=== PATIENT | female | born 1995 | race African-American/Black ===

== ENCOUNTER 2016-05-27 11:39 | Emergency (ER) | payer OTHER, MEDICAID ==
[~2016-05-27] VITALS: Ht 172.7 cm; Wt 81.5 kg
[~2016-05-27 11:39] MED LIST: DOCU250C91 PO; FERR-89 PO; IBUP-2070 PO; PREN1TAB80 PO
[2016-05-27] MEDS ORDERED: LIDOCAINE HCL BUFFERED 1% 20 ML VIAL INJ ONE (12:45)
[2016-05-27 13:37] VITALS: BP 134/86
== END 2016-05-27 14:13 | disposition home or self-care (01) ==
LOC: EMS 11:40
DX: L03.011 Cellulitis of right finger (principal)
CPT/HCPCS: 10060; 99283; J3490

== ENCOUNTER 2016-12-14 23:36 | Emergency (ER) | payer MEDICAID, OTHER ==
[~2016-12-14] VITALS: Ht 172.7 cm; Wt 86.4 kg
[2016-12-15 03:30] VITALS: BP 132/77
[2016-12-15] MEDS ORDERED: BACITRACIN 0.9 GM PACKET OINTMENT TP ONE (03:30)
[2016-12-15] MEDS ORDERED: PERTUSS(ACELL),DIPH,TET VAC/PF 0.5 ML VIAL IM ONE (03:30)
== END 2016-12-15 03:55 | disposition home or self-care (01) ==
LOC: EMS 23:37
DX: S91.311A Laceration without foreign body, right foot, initial encounter (principal); W25.XXXA Contact with sharp glass, initial encounter; Y93.89 Activity, other specified; Y92.89 Other specified places as the place of occurrence of the external cause; Y99.8 Other external cause status
CPT/HCPCS: 90471; 90715; 99284

== ENCOUNTER 2017-03-13 16:48 | Emergency (ER) | payer MEDICAID, OTHER ==
[~2017-03-13] VITALS: Ht 172.7 cm; Wt 84.5 kg
[2017-03-13 19:08] VITALS: BP 120/78
== END 2017-03-13 20:15 | disposition home or self-care (01) ==
LOC: EMS 16:49
DX: J02.8 Acute pharyngitis due to other specified organisms (principal); B97.89 Other viral agents as the cause of diseases classified elsewhere; J06.9 Acute upper respiratory infection, unspecified
CPT/HCPCS: 87430; 99283

== ENCOUNTER 2018-05-04 18:07 | Emergency (ER) | payer BC, MEDICAID ==
[~2018-05-04] VITALS: Ht 172.7 cm; Wt 81.8 kg
[2018-05-04 20:58] LABS: INFLUENZA TYPE A POSITIVE FOR TYPE A (NEGATIVE); INFLUENZA TYPE B NEGATIVE FOR TYPE B (NEGATIVE)
[2018-05-04 21:16] VITALS: BP 122/68
== END 2018-05-04 21:29 | disposition home or self-care (01) ==
LOC: EMS 18:08
DX: J11.1 Influenza due to unidentified influenza virus with other respiratory manifestations (principal); R03.0 Elevated blood-pressure reading, without diagnosis of hypertension
CPT/HCPCS: 87804

== ENCOUNTER 2018-07-27 13:21 | Emergency (ER) | payer BC, MEDICAID ==
[~2018-07-27] VITALS: Ht 172.7 cm; Wt 70.0 kg
[2018-07-27 14:02] LABS: BASOPHILS % (AUTO) 1.2 % (0.0-2.0); EOSINOPHILS % (AUTO) 1.1 % (1.0-6.0); HEMATOCRIT 38.8 % (36-46); LYMPHOCYTES # (AUTO) 1.8 K/uL (1.0-4.8); LYMPHOCYTES % (AUTO) 24.5 % (22.0-44.0); MEAN CORPUSCULAR HEMOGLOBIN 28.3 pg (26.0-34.0); MEAN CORPUSCULAR HGB CONC 33.6 G/dL (31.0-37.0); MEAN CORPUSCULAR VOLUME 84 fL (80-100); MONOCYTES # (AUTO) 0.5 K/uL (0.1-1.0); MONOCYTES % (AUTO) 7.1 % (2.0-9.0); NEUTROPHILS # (AUTO) 4.8 K/uL (1.8-7.7); NEUTROPHILS % (AUTO) 66.1 % (40.0-70.0); PLATELET COUNT (AUTO) 401 K/uL (150-450); RED BLOOD CELL COUNT(AUTO) 4.61 MIL/uL (4.00-5.20); RED CELL DISTRIBUTION WIDTH 14.1 % (11.5-14.5)
[2018-07-27 14:09] LABS: ANION GAP 14 mmol/L (8-16); CALCIUM, TOTAL 10.5 mg/dL (8.8-10.5); CARBON DIOXIDE 22 mmol/L (22-29); CHLORIDE 97 mmol/L (98-107); CREATININE 0.94 mg/dL (0.60-1.30); GLOMERULAR FILTR. RATE CALC > 60 mL/min (>60); GLUCOSE,RANDOM 176 mg/dL (70-110); POTASSIUM 3.7 mmol/L (3.5-5.1); SODIUM SERUM 133 mmol/L (136-145); UREA NITROGEN, BLOOD 16 mg/dL (7-18)
[2018-07-27 14:35] LABS: ALANINE AMINOTRANSFERASE 14 U/L (12-78); ALBUMIN 3.7 g/dL (3.4-5.0); ALKALINE PHOSPHATASE 68 U/L (46-116); AMYLASE 96 U/L (25-115); ASPARTATE AMINOTRANSFERASE 13 U/L (15-37); BILIRUBIN,TOTAL 0.6 mg/dL (0.1-1.0); LIPASE 380 U/L (73-393); TOTAL PROTEIN, SERUM 8.5 g/dL (6.4-8.2)
[2018-07-27] MEDS ORDERED: SODIUM CHLORIDE 0.9% 1,000 ML IV ONE (15:15)
[2018-07-27] MEDS ORDERED: ONDANSETRON HCL 4 MG/2 ML VIAL IVP ONE (15:15)
[2018-07-27 15:20] LABS: HCG,QUANTITATIVE 363108 mIU/mL (0-6)
[2018-07-27] MEDS ORDERED: METOCLOPRAMIDE HCL 5 MG/ML 2 ML VIAL IVP ONE (19:00)
[2018-07-27 19:15] VITALS: BP 115/95
== END 2018-07-27 20:08 | disposition home or self-care (01) ==
LOC: EMS 13:24
DX: O21.8 Other vomiting complicating pregnancy (principal); Z3A.08 8 weeks gestation of pregnancy
CPT/HCPCS: 36415; 76801; 76817; 80053; 82150; 83690; 84702; 85025; 96361; 96374; 96375; 99284; J2405; J2765; J7030

== ENCOUNTER 2018-08-03 15:36 | Emergency (ER) | payer BC, MEDICAID ==
[~2018-08-03] VITALS: Ht 167.6 cm; Wt 68.2 kg
[2018-08-03] MEDS ORDERED: SODIUM CHLORIDE 0.9% 2,000 ML IV ONE (17:30)
[2018-08-03] MEDS ORDERED: ONDANSETRON HCL 4 MG/2 ML VIAL IVP ONE ×2 (17:30→20:00)
[2018-08-03 17:44] LABS: BASOPHILS % (AUTO) 0.4 % (0.0-2.0); EOSINOPHILS % (AUTO) 0.2 % (1.0-6.0); HEMATOCRIT 41.3 % (36-46); HEMOGLOBIN 14.2 g/dL (12.0-16.0); LYMPHOCYTES # (AUTO) 1.5 K/uL (1.0-4.8); LYMPHOCYTES % (AUTO) 19.6 % (22.0-44.0); MEAN CORPUSCULAR HEMOGLOBIN 28.4 pg (26.0-34.0); MEAN CORPUSCULAR HGB CONC 34.3 G/dL (31.0-37.0); MEAN CORPUSCULAR VOLUME 83 fL (80-100); MONOCYTES # (AUTO) 0.6 K/uL (0.1-1.0); MONOCYTES % (AUTO) 7.7 % (2.0-9.0); NEUTROPHILS # (AUTO) 5.6 K/uL (1.8-7.7); NEUTROPHILS % (AUTO) 72.1 % (40.0-70.0); PLATELET COUNT (AUTO) 391 K/uL (150-450); RED BLOOD CELL COUNT(AUTO) 4.99 MIL/uL (4.00-5.20); RED CELL DISTRIBUTION WIDTH 13.7 % (11.5-14.5)
[2018-08-03 17:51] LABS: ANION GAP 17 mmol/L (8-16); CALCIUM, TOTAL 11.2 mg/dL (8.8-10.5); CARBON DIOXIDE 24 mmol/L (22-29); CHLORIDE 93 mmol/L (98-107); CREATININE 0.85 mg/dL (0.60-1.30); GLOMERULAR FILTR. RATE CALC > 60 mL/min (>60); GLUCOSE,RANDOM 98 mg/dL (70-110); POTASSIUM 3.3 mmol/L (3.5-5.1); SODIUM SERUM 134 mmol/L (136-145); UREA NITROGEN, BLOOD 18 mg/dL (7-18)
[2018-08-03] MEDS ORDERED: SODIUM CHLORIDE 0.9% 1,000 ML IV ONE (20:00)
[2018-08-03] MEDS ORDERED: ACETAMINOPHEN 500 MG TABLET PO ONE (20:00)
[2018-08-03 22:02] VITALS: BP 117/77
== END 2018-08-03 22:10 | disposition home or self-care (01) ==
LOC: EMS 15:37
DX: O21.0 Mild hyperemesis gravidarum (principal); Z3A.08 8 weeks gestation of pregnancy
CPT/HCPCS: 36415; 80048; 85025; 93005; 96361; 96374; 96376; 99284; J2405; J7030

== ENCOUNTER 2018-08-14 13:23 | Inpatient (IN) | payer BC, MEDICAID ==
[~2018-08-14] VITALS: Ht 172.7 cm; Wt 73.7 kg
[2018-08-14] MEDS ORDERED: SODIUM CHLORIDE 0.9% 1,000 ML IV ONE ×2 (13:31→14:30)
[2018-08-14] MEDS ORDERED: ONDA4 PO (13:34)
[2018-08-14] MEDS ORDERED: METR250 PO (13:34)
[2018-08-14] MEDS ORDERED: ONDANSETRON HCL 4 MG/2 ML VIAL IVP ONE (13:45)
[2018-08-14 13:47] LABS: BASOPHILS % (AUTO) 0.6 % (0.0-2.0); EOSINOPHILS % (AUTO) 0.1 % (1.0-6.0); HEMOGLOBIN 12.1 g/dL (12.0-16.0); LYMPHOCYTES # (AUTO) 1.1 K/uL (1.0-4.8); LYMPHOCYTES % (AUTO) 17.3 % (22.0-44.0); MEAN CORPUSCULAR HEMOGLOBIN 27.8 pg (26.0-34.0); MEAN CORPUSCULAR HGB CONC 33.5 G/dL (31.0-37.0); MEAN CORPUSCULAR VOLUME 83 fL (80-100); MONOCYTES # (AUTO) 0.5 K/uL (0.1-1.0); MONOCYTES % (AUTO) 8.4 % (2.0-9.0); NEUTROPHILS # (AUTO) 4.8 K/uL (1.8-7.7); NEUTROPHILS % (AUTO) 73.6 % (40.0-70.0); PLATELET COUNT (AUTO) 367 K/uL (150-450); RED BLOOD CELL COUNT(AUTO) 4.34 MIL/uL (4.00-5.20); RED CELL DISTRIBUTION WIDTH 13.4 % (11.5-14.5)
[2018-08-14 13:57] LABS: ANION GAP 19 mmol/L (8-16); CALCIUM, TOTAL 9.4 mg/dL (8.8-10.5); CARBON DIOXIDE 17 mmol/L (22-29); CHLORIDE 98 mmol/L (98-107); CREATININE 0.64 mg/dL (0.60-1.30); GLOMERULAR FILTR. RATE CALC > 60 mL/min (>60); GLUCOSE,RANDOM 94 mg/dL (70-110); POTASSIUM 3.5 mmol/L (3.5-5.1); SODIUM SERUM 134 mmol/L (136-145); UREA NITROGEN, BLOOD 13 mg/dL (7-18)
[2018-08-14 14:25] LABS: ALANINE AMINOTRANSFERASE 28 U/L (12-78); ALBUMIN 3.2 g/dL (3.4-5.0); ALKALINE PHOSPHATASE 53 U/L (46-116); ASPARTATE AMINOTRANSFERASE 16 U/L (15-37); BILIRUBIN,TOTAL 0.7 mg/dL (0.1-1.0); LIPASE 500 U/L (73-393); TOTAL PROTEIN, SERUM 7.2 g/dL (6.4-8.2)
[2018-08-14 15:02] LABS: HCG,QUANTITATIVE 291495 mIU/mL (0-6)
[2018-08-14 15:25] LABS: APPEARANCE,URINE CLOUDY (CLEAR); BILIRUBIN,URINE NEGATIVE (NEGATIVE); GLUCOSE, URINE (UA) NEGATIVE (NEGATIVE); KETONES,URINE >=80 mg/dL (NEGATIVE); LEUKOCYTE ESTERASE ,URINE NEGATIVE (NEGATIVE); NITRATE,URINE NEGATIVE (NEGATIVE); OCCULT BLOOD,URINE NEGATIVE (NEGATIVE); PH,URINE 5.5 (5.0-8.0); PROTEIN,URINE SEE CONFIRM (NEGATIVE)
[2018-08-14 15:29] LABS: AMPHET/METH SCREEN,URINE NEGATIVE (NEGATIVE); BARBITURATE SCREEN, URINE NEGATIVE (NEGATIVE); BENZODIAZEPINES SCREEN,URINE NEGATIVE (NEGATIVE); CANNABINOID SCREEN,URINE NEGATIVE (NEGATIVE); COCAINE SCREEN,URINE NEGATIVE (NEGATIVE); METHADONE SCREEN, URINE NEGATIVE (NEGATIVE); OPIATE SCREEN,URINE NEGATIVE (NEGATIVE); PHENCYCLIDINE SCREEN,URINE NEGATIVE (NEGATIVE)
[2018-08-14 15:38] LABS: SULFOSALICYLIC ACID,URINE 1+ (Negative)
[2018-08-14 15:40] LABS: BACTERIA,URINE None Seen /HPF (None Seen); RBC,URINE None Seen /HPF (0-2); SQUAMOUS EPITHELIAL CELL,UR Moderate /LPF (None Seen)
[2018-08-14] MEDS ORDERED: ACETAMINOPHEN 325 MG TABLET PO PRN (16:00)
[2018-08-14] MEDS: SODIUM CHLORIDE 0.9% 1,000 ML IV SCH (16:09)
[2018-08-14 18:09] VITALS: BP 112/82
[2018-08-14 18:16] VITALS: BP 112/82
[2018-08-14 21:15] VITALS: BP 118/68
[2018-08-14] MEDS: ONDANSETRON HCL 4 MG/2 ML VIAL IVP PRN (23:44)
[2018-08-15] VITALS (9 sets, daily range): BP systolic 100–127; BP diastolic 51–68
[2018-08-15] MEDS: SODIUM CHLORIDE 0.9% 1,000 ML IV SCH ×2 (05:03→17:29)
[2018-08-15] MEDS: ONDANSETRON HCL 4 MG/2 ML VIAL IVP PRN ×3 (08:25→23:33)
[2018-08-15 12:40] LABS: ANION GAP 14 mmol/L (8-16); CARBON DIOXIDE 18 mmol/L (22-29); CHLORIDE 105 mmol/L (98-107); CREATININE 0.47 mg/dL (0.60-1.30); GLOMERULAR FILTR. RATE CALC > 60 mL/min (>60); GLUCOSE,RANDOM 75 mg/dL (70-110); LIPASE 541 U/L (73-393); POTASSIUM 3.4 mmol/L (3.5-5.1); SODIUM SERUM 137 mmol/L (136-145); UREA NITROGEN, BLOOD 8 mg/dL (7-18)
[2018-08-15 12:46] LABS: CALCIUM, TOTAL 8.6 mg/dL (8.8-10.5)
[2018-08-15] MEDS: PRENATAL VIT#96/FERROUS FUM/FA TABLET PO SCH (14:47)
[2018-08-15] MEDS ORDERED: POTASSIUM CHLORIDE 20 MEQ ER TABLET PO ONE (16:45)
[2018-08-16 04:16] VITALS: BP 118/70
[2018-08-16] MEDS: ONDANSETRON HCL 4 MG/2 ML VIAL IVP PRN (06:13)
[2018-08-16] MEDS: SODIUM CHLORIDE 0.9% 1,000 ML IV SCH (06:13)
[2018-08-16 08:01] VITALS: BP 118/59
[2018-08-16] MEDS: PRENATAL VIT#96/FERROUS FUM/FA TABLET PO SCH (08:10)
[2018-08-16] MEDS ORDERED: DOCUSATE SODIUM 100 MG CAPSULE PO SCH (09:00)
[2018-08-16 19:45] VITALS: BP 120/61
== END 2018-08-16 20:30 | disposition home or self-care (01) | DRG 831 ==
LOC: EMS 13:24 → 5N 16:44 → 4E 08-16 10:30
PROVIDERS: ADMIT Internal Medicine; ATTEND Internal Medicine
DX: O21.1 Hyperemesis gravidarum with metabolic disturbance (principal); K85.90 Acute pancreatitis without necrosis or infection, unspecified; O30.001 Twin pregnancy, unspecified number of placenta and unspecified number of amniotic sacs, first trimester; O99.611 Diseases of the digestive system complicating pregnancy, first trimester; K92.89 Other specified diseases of the digestive system; O99.281 Endocrine, nutritional and metabolic diseases complicating pregnancy, first trimester; Z3A.11 11 weeks gestation of pregnancy; Z82.49 Family history of ischemic heart disease and other diseases of the circulatory system
CPT/HCPCS: 76700; 76801; 76817; 96361; 96374; G0378; J2405; J7030

== ENCOUNTER 2018-09-01 15:42 | Inpatient (IN) | payer BC, MEDICAID, MEDICARE ==
[~2018-09-01] VITALS: Ht 175.3 cm; Wt 73.0 kg
[~2018-09-01 15:42] MED LIST changes: -DOCU250C91 PO; -FERR-89 PO; -IBUP-2070 PO; +ONDA4 PO; -PREN1TAB80 PO
[2018-09-01] MEDS ORDERED: DEXAMETHASONE SOD PHOS 4 MG/ML 5 ML VIAL IVP ONE (16:30)
[2018-09-01] MEDS ORDERED: SODIUM CHLORIDE 0.9% 1,000 ML IV ONE ×3 (16:30→21:00)
[2018-09-01] MEDS ORDERED: ACETAMINOPHEN 1000 MG/ISO-OSM 100 ML IV ONE (16:30)
[2018-09-01 17:03] LABS: BASOPHILS % (AUTO) 0.2 % (0.0-2.0); EOSINOPHILS % (AUTO) 0.1 % (1.0-6.0); HEMATOCRIT 35.7 % (36-46); HEMOGLOBIN 12.3 g/dL (12.0-16.0); LYMPHOCYTES # (AUTO) 1.1 K/uL (1.0-4.8); LYMPHOCYTES % (AUTO) 12.8 % (22.0-44.0); MEAN CORPUSCULAR HEMOGLOBIN 27.6 pg (26.0-34.0); MEAN CORPUSCULAR HGB CONC 34.3 G/dL (31.0-37.0); MEAN CORPUSCULAR VOLUME 81 fL (80-100); MONOCYTES # (AUTO) 0.8 K/uL (0.1-1.0); MONOCYTES % (AUTO) 8.5 % (2.0-9.0); NEUTROPHILS # (AUTO) 6.9 K/uL (1.8-7.7); NEUTROPHILS % (AUTO) 78.4 % (40.0-70.0); PLATELET COUNT (AUTO) 394 K/uL (150-450); RED BLOOD CELL COUNT(AUTO) 4.44 MIL/uL (4.00-5.20); RED CELL DISTRIBUTION WIDTH 13.2 % (11.5-14.5)
[2018-09-01] MEDS ORDERED: SODIUM CHLORIDE 0.9% 100 ML ONE (17:05)
[2018-09-01] MEDS ORDERED: IOVERSOL 320 MG/ML 100 ML VIAL ONE (17:05)
[2018-09-01 17:14] LABS: CALCIUM, TOTAL 10.4 mg/dL (8.8-10.5); CARBON DIOXIDE 23 mmol/L (22-29); CREATININE 0.71 mg/dL (0.60-1.30); GLOMERULAR FILTR. RATE CALC > 60 mL/min (>60); GLUCOSE,RANDOM 131 mg/dL (70-110); UREA NITROGEN, BLOOD 16 mg/dL (7-18)
[2018-09-01 17:24] LABS: ANION GAP 17 mmol/L (8-16); CHLORIDE 94 mmol/L (98-107); SODIUM SERUM 134 mmol/L (136-145)
[2018-09-01 17:27] LABS: POTASSIUM 2.3 mmol/L (3.5-5.1)
[2018-09-01] MEDS: POTASSIUM CHL 10 MEQ/WATER 50 ML IV SCH ×4 (17:46→23:17)
[2018-09-01] MEDS ORDERED: DIATRIZOATE MEGLU/SOD 660/100 MG/ML 120 ML BOTTLE ONE (19:11)
[2018-09-01] MEDS ORDERED: DIATRIZOATE MEGLU/SOD 660/100 MG/ML 120 ML BOTTLE PO ONE (19:15)
[2018-09-01 19:28] LABS: AMPHET/METH SCREEN,URINE NEGATIVE (NEGATIVE); BARBITURATE SCREEN, URINE NEGATIVE (NEGATIVE); BENZODIAZEPINES SCREEN,URINE NEGATIVE (NEGATIVE); CANNABINOID SCREEN,URINE NEGATIVE (NEGATIVE); COCAINE SCREEN,URINE NEGATIVE (NEGATIVE); METHADONE SCREEN, URINE NEGATIVE (NEGATIVE); OPIATE SCREEN,URINE NEGATIVE (NEGATIVE); PHENCYCLIDINE SCREEN,URINE NEGATIVE (NEGATIVE)
[2018-09-01] MEDS ORDERED: HYDROCODONE/ACETAMINOPHEN 5-325 MG TABLET PO PRN (21:00)
[2018-09-01] MEDS ORDERED: ACETAMINOPHEN 325 MG TABLET PO PRN ×2 (21:00→21:15)
[2018-09-01] MEDS ORDERED: MORPHINE SULFATE 4 MG/ML SYRINGE IVP PRN (21:00)
[2018-09-01] MEDS ORDERED: ONDANSETRON HCL 4 MG/2 ML VIAL IVP PRN (21:00)
[2018-09-01 22:00] VITALS: BP 122/67
[2018-09-02] MEDS: POTASSIUM CHL 10 MEQ/WATER 50 ML IV PRN ×8 (03:08→13:54)
[2018-09-02] MEDS: ONDANSETRON HCL 4 MG/2 ML VIAL IVP PRN ×2 (03:08→21:24)
[2018-09-02] MEDS: MORPHINE SULFATE 2 MG/ML SYRINGE IVP PRN ×2 (03:31→09:26)
[2018-09-02 04:13] VITALS: BP 117/65
[2018-09-02 05:59] LABS: EOSINOPHILS % (AUTO) 0 % (1.0-6.0); HEMATOCRIT 28.2 % (36-46); HEMOGLOBIN 10.2 g/dL (12.0-16.0); LYMPHOCYTES % (AUTO) 8.7 % (22.0-44.0); MEAN CORPUSCULAR HEMOGLOBIN 29.1 pg (26.0-34.0); MEAN CORPUSCULAR HGB CONC 36.2 G/dL (31.0-37.0); MEAN CORPUSCULAR VOLUME 80 fL (80-100); MONOCYTES # (AUTO) 0.9 K/uL (0.1-1.0); MONOCYTES % (AUTO) 7.9 % (2.0-9.0); NEUTROPHILS # (AUTO) 9.1 K/uL (1.8-7.7); NEUTROPHILS % (AUTO) 83.4 % (40.0-70.0); PLATELET COUNT (AUTO) 316 K/uL (150-450); RED BLOOD CELL COUNT(AUTO) 3.51 MIL/uL (4.00-5.20)
[2018-09-02 06:08] LABS: ALANINE AMINOTRANSFERASE 354 U/L (12-78); ALBUMIN 2.4 g/dL (3.4-5.0); ALKALINE PHOSPHATASE 67 U/L (46-116); ANION GAP 10 mmol/L (8-16); ASPARTATE AMINOTRANSFERASE 196 U/L (15-37); BILIRUBIN,TOTAL 0.9 mg/dL (0.1-1.0); CALCIUM, TOTAL 9.2 mg/dL (8.8-10.5); CARBON DIOXIDE 24 mmol/L (22-29); CHLORIDE 99 mmol/L (98-107); CREATININE 0.49 mg/dL (0.60-1.30); GLOMERULAR FILTR. RATE CALC > 60 mL/min (>60); GLUCOSE,RANDOM 103 mg/dL (70-110); SODIUM SERUM 133 mmol/L (136-145); TOTAL PROTEIN, SERUM 6.1 g/dL (6.4-8.2); UREA NITROGEN, BLOOD 11 mg/dL (7-18)
[2018-09-02 06:17] LABS: POTASSIUM 2.9 mmol/L (3.5-5.1)
[2018-09-02] MEDS ORDERED: MAGNESIUM SULFATE 2 GM/WATER 50 ML IV ONE (08:00)
[2018-09-02 08:13] VITALS: BP 119/67
[2018-09-02 11:33] VITALS: BP 110/54
[2018-09-02] MEDS ORDERED: SODIUM CHLORIDE 0.9% 250 ML IV ONE (13:47)
[2018-09-02 15:37] VITALS: BP 114/59
[2018-09-02] MEDS: PRENATAL VIT#96/FERROUS FUM/FA TABLET PO SCH (16:25)
[2018-09-02] MEDS: POTASSIUM CHLORIDE 20 MEQ ER TABLET PO PRN ×2 (16:45→21:21)
[2018-09-02 17:24] LABS: APPEARANCE,URINE CLOUDY (CLEAR); GLUCOSE, URINE (UA) NEGATIVE (NEGATIVE); KETONES,URINE 15 mg/dL (NEGATIVE); LEUKOCYTE ESTERASE ,URINE NEGATIVE (NEGATIVE); NITRATE,URINE NEGATIVE (NEGATIVE); OCCULT BLOOD,URINE NEGATIVE (NEGATIVE); PH,URINE 6.5 (5.0-8.0); PROTEIN,URINE POS 1+ (NEGATIVE)
[2018-09-02 17:43] LABS: BILIRUBIN,URINE PRELIM. POSITIVE (NEGATIVE)
[2018-09-02 18:08] LABS: AMORPHOUS SEDIMENT,UR Few /LPF (None Seen); BACTERIA,URINE Moderate /HPF (None Seen); RBC,URINE None Seen /HPF (0-2); SQUAMOUS EPITHELIAL CELL,UR Many /LPF (None Seen)
[2018-09-02] MEDS ORDERED: CEPHALEXIN MONOHYDRATE 500 MG CAPSULE PO SCH (19:00)
[2018-09-02 19:39] VITALS: BP 103/72
[2018-09-02 23:56] VITALS: BP 123/74
[2018-09-03] MEDS: ONDANSETRON HCL 4 MG/2 ML VIAL IVP PRN ×2 (04:48→23:45)
[2018-09-03 05:10] VITALS: BP 106/58
[2018-09-03] MEDS ORDERED: CEPHALEXIN MONOHYDRATE 500 MG CAPSULE PO SCH (06:00)
[2018-09-03 07:09] LABS: BASOPHILS % (AUTO) 0.3 % (0.0-2.0); EOSINOPHILS % (AUTO) 1.3 % (1.0-6.0); HEMATOCRIT 28.1 % (36-46); HEMOGLOBIN 9.5 g/dL (12.0-16.0); LYMPHOCYTES # (AUTO) 1.3 K/uL (1.0-4.8); LYMPHOCYTES % (AUTO) 21.8 % (22.0-44.0); MEAN CORPUSCULAR HEMOGLOBIN 27.7 pg (26.0-34.0); MEAN CORPUSCULAR HGB CONC 33.9 G/dL (31.0-37.0); MEAN CORPUSCULAR VOLUME 82 fL (80-100); MONOCYTES # (AUTO) 0.6 K/uL (0.1-1.0); MONOCYTES % (AUTO) 10.8 % (2.0-9.0); NEUTROPHILS # (AUTO) 3.9 K/uL (1.8-7.7); NEUTROPHILS % (AUTO) 65.8 % (40.0-70.0); PLATELET COUNT (AUTO) 264 K/uL (150-450); RED BLOOD CELL COUNT(AUTO) 3.43 MIL/uL (4.00-5.20); RED CELL DISTRIBUTION WIDTH 13.1 % (11.5-14.5)
[2018-09-03 07:39] LABS: ALANINE AMINOTRANSFERASE 361 U/L (12-78); ALBUMIN 2.3 g/dL (3.4-5.0); ALKALINE PHOSPHATASE 64 U/L (46-116); ANION GAP 11 mmol/L (8-16); ASPARTATE AMINOTRANSFERASE 176 U/L (15-37); BILIRUBIN,TOTAL 0.8 mg/dL (0.1-1.0); CARBON DIOXIDE 22 mmol/L (22-29); CHLORIDE 102 mmol/L (98-107); CREATININE 0.51 mg/dL (0.60-1.30); GLOMERULAR FILTR. RATE CALC > 60 mL/min (>60); GLUCOSE,RANDOM 84 mg/dL (70-110); PHOSPHORUS 2.6 mg/dL (2.5-4.9); SODIUM SERUM 135 mmol/L (136-145); TOTAL PROTEIN, SERUM 5.7 g/dL (6.4-8.2); UREA NITROGEN, BLOOD 7 mg/dL (7-18)
[2018-09-03 07:46] LABS: POTASSIUM 2.7 mmol/L (3.5-5.1)
[2018-09-03 07:49] VITALS: BP 133/60
[2018-09-03] MEDS: PRENATAL VIT#96/FERROUS FUM/FA TABLET PO SCH (09:00)
[2018-09-03] MEDS: POTASSIUM CHL 10 MEQ/WATER 50 ML IV PRN ×7 (09:28→20:39)
[2018-09-03] MEDS ORDERED: MAGNESIUM SULFATE 4 GM/WATER 100 ML IV PRN (10:00)
[2018-09-03] MEDS ORDERED: MAGNESIUM SULFATE 2 GM/WATER 50 ML IV PRN (10:00)
[2018-09-03] MEDS: MAGNESIUM OXIDE 400 MG TABLET PO PRN ×3 (11:03→20:39)
[2018-09-03 11:14] LABS: AMYLASE 59 U/L (25-115); LIPASE 402 U/L (73-393)
[2018-09-03 11:18] VITALS: BP 114/64
[2018-09-03] MEDS: PANTOPRAZOLE SODIUM 40 MG/VIAL IVP SCH ×2 (13:24→20:39)
[2018-09-03 13:52] LABS: PROTHROMBIN TIME 10.3 SEC (9.4-11.6)
[2018-09-03] MEDS ORDERED: SODIUM CHLORIDE 0.9% 250 ML IV ONE ×2 (15:10→20:48)
[2018-09-03 15:18] VITALS: BP 126/65
[2018-09-03] MEDS: SUCRALFATE 1 GM/10 ML SUSPENSION UDCUP PO SCH ×2 (15:21→20:39)
[2018-09-03 20:00] VITALS: BP 124/58
[2018-09-03] MEDS ORDERED: PANTOPRAZOLE SODIUM 40 MG/VIAL IVP SCH (21:00)
[2018-09-04 01:11] VITALS: BP 115/60
[2018-09-04 01:31] LABS: APPEARANCE,URINE CLOUDY (CLEAR); BILIRUBIN,URINE NEGATIVE (NEGATIVE); GLUCOSE, URINE (UA) 100 mg/dL (NEGATIVE); KETONES,URINE NEGATIVE (NEGATIVE); LEUKOCYTE ESTERASE ,URINE TRACE (NEGATIVE); NITRATE,URINE NEGATIVE (NEGATIVE); OCCULT BLOOD,URINE TRACE (NEGATIVE); PROTEIN,URINE TRACE (NEGATIVE)
[2018-09-04 01:44] LABS: BACTERIA,URINE Rare /HPF (None Seen); RBC,URINE 0-2 /HPF (0-2); SQUAMOUS EPITHELIAL CELL,UR Many /LPF (None Seen)
[2018-09-04 04:29] VITALS: BP 115/54
[2018-09-04 07:50] VITALS: BP 107/70
[2018-09-04] MEDS: PANTOPRAZOLE SODIUM 40 MG/VIAL IVP SCH ×2 (08:36→20:44)
[2018-09-04] MEDS: PRENATAL VIT#96/FERROUS FUM/FA TABLET PO SCH (08:36)
[2018-09-04] MEDS: POTASSIUM CHL 10 MEQ/WATER 50 ML IV PRN ×3 (08:37→16:54)
[2018-09-04 10:01] LABS: BASOPHILS % (AUTO) 0.4 % (0.0-2.0); EOSINOPHILS % (AUTO) 1.7 % (1.0-6.0); HEMATOCRIT 26.7 % (36-46); LYMPHOCYTES # (AUTO) 1.4 K/uL (1.0-4.8); LYMPHOCYTES % (AUTO) 20.1 % (22.0-44.0); MEAN CORPUSCULAR HEMOGLOBIN 27.9 pg (26.0-34.0); MEAN CORPUSCULAR HGB CONC 33.8 G/dL (31.0-37.0); MEAN CORPUSCULAR VOLUME 82 fL (80-100); MONOCYTES # (AUTO) 0.7 K/uL (0.1-1.0); NEUTROPHILS # (AUTO) 4.7 K/uL (1.8-7.7); NEUTROPHILS % (AUTO) 67.8 % (40.0-70.0); PLATELET COUNT (AUTO) 246 K/uL (150-450); RED BLOOD CELL COUNT(AUTO) 3.24 MIL/uL (4.00-5.20); RED CELL DISTRIBUTION WIDTH 13.3 % (11.5-14.5)
[2018-09-04] MEDS: SUCRALFATE 1 GM/10 ML SUSPENSION UDCUP PO SCH ×3 (10:16→20:44)
[2018-09-04] MEDS: ONDANSETRON HCL 4 MG/2 ML VIAL IVP PRN (10:16)
[2018-09-04 10:45] LABS: ALANINE AMINOTRANSFERASE 349 U/L (12-78); ALBUMIN 2.2 g/dL (3.4-5.0); ALKALINE PHOSPHATASE 64 U/L (46-116); ANION GAP 10 mmol/L (8-16); ASPARTATE AMINOTRANSFERASE 147 U/L (15-37); BILIRUBIN,TOTAL 0.6 mg/dL (0.1-1.0); CALCIUM, TOTAL 8.8 mg/dL (8.8-10.5); CARBON DIOXIDE 23 mmol/L (22-29); CHLORIDE 104 mmol/L (98-107); CREATININE 0.67 mg/dL (0.60-1.30); GLOMERULAR FILTR. RATE CALC > 60 mL/min (>60); GLUCOSE,RANDOM 94 mg/dL (70-110); POTASSIUM 3.4 mmol/L (3.5-5.1); SODIUM SERUM 137 mmol/L (136-145); TOTAL PROTEIN, SERUM 5.4 g/dL (6.4-8.2); UREA NITROGEN, BLOOD 5 mg/dL (7-18)
[2018-09-04 11:15] VITALS: BP 132/64
[2018-09-04] MEDS ORDERED: SODIUM CHLORIDE 0.9% 250 ML IV ONE (12:54)
[2018-09-04] MEDS: CefTRIAXone 1 GM/DEXTROSE 50 ML IV SCH (18:56)
[2018-09-04 19:52] VITALS: BP 112/60
[2018-09-05 00:30] VITALS: BP 120/62
[2018-09-05 04:33] VITALS: BP 105/53
[2018-09-05 08:10] VITALS: BP 122/60
[2018-09-05] MEDS: SUCRALFATE 1 GM/10 ML SUSPENSION UDCUP PO SCH (08:30)
[2018-09-05] MEDS: PANTOPRAZOLE SODIUM 40 MG/VIAL IVP SCH (08:30)
[2018-09-05] MEDS: PRENATAL VIT#96/FERROUS FUM/FA TABLET PO SCH (08:30)
[2018-09-05] MEDS: CefTRIAXone 1 GM/DEXTROSE 50 ML IV SCH (11:12)
[2018-09-05 11:23] VITALS: BP 111/60
[2018-09-05] MEDS ORDERED: RANI150T7 PO (14:19)
[2018-09-05] MEDS ORDERED: SLOWK8 PO (14:22)
[2018-09-05] MEDS ORDERED: PNV1TABL89 PO (14:24)
== END 2018-09-05 15:35 | disposition home or self-care (01) | DRG 833 ==
LOC: EMS 15:43 → 5S 20:30
PROVIDERS: ADMIT Internal Medicine; ATTEND Internal Medicine
DX: O99.512 Diseases of the respiratory system complicating pregnancy, second trimester (principal); J98.2 Interstitial emphysema; O21.1 Hyperemesis gravidarum with metabolic disturbance; O99.012 Anemia complicating pregnancy, second trimester; D64.9 Anemia, unspecified; O23.42 Unspecified infection of urinary tract in pregnancy, second trimester; B95.2 Enterococcus as the cause of diseases classified elsewhere; O30.002 Twin pregnancy, unspecified number of placenta and unspecified number of amniotic sacs, second trimester; O99.89 Other specified diseases and conditions complicating pregnancy, childbirth and the puerperium; H10.9 Unspecified conjunctivitis; Z3A.14 14 weeks gestation of pregnancy
CPT/HCPCS: 70491; 71250; 76705; 76811; 76812; 80074; 82239; 83735; 84100; 84132; 86038; 86706; 86707; 87081; 87086; 87340; 87350; 87430; 92610; 93005; 96365; 96375; C9113; G0378; J0131; J0696; J1100; J2270; J2405; J3475; J3480; J7030; J7050

== ENCOUNTER 2019-08-23 14:37 | Emergency (ER) | payer MEDICAID, MEDICARE ==
[~2019-08-23] VITALS: Ht 172.7 cm; Wt 84.1 kg
[~2019-08-23 14:37] MED LIST changes: -ONDA4 PO; +PNV1TABL89 PO; +RANI150T7 PO; +SLOWK8 PO
[2019-08-23 16:23] LABS: BASOPHILS % (AUTO) 0.4 % (0.0-2.0); EOSINOPHILS % (AUTO) 1.6 % (1.0-6.0); HEMOGLOBIN 10.6 g/dL (12.0-16.0); LYMPHOCYTES # (AUTO) 1.5 K/uL (1.0-4.8); LYMPHOCYTES % (AUTO) 24.5 % (22.0-44.0); MEAN CORPUSCULAR HEMOGLOBIN 28.1 pg (26.0-34.0); MEAN CORPUSCULAR HGB CONC 33.2 G/dL (31.0-37.0); MEAN CORPUSCULAR VOLUME 85 fL (80-100); MONOCYTES # (AUTO) 0.7 K/uL (0.1-1.0); NEUTROPHILS # (AUTO) 3.8 K/uL (1.8-7.7); NEUTROPHILS % (AUTO) 62.5 % (40.0-70.0); PLATELET COUNT (AUTO) 296 K/uL (150-450); RED BLOOD CELL COUNT(AUTO) 3.78 MIL/uL (4.00-5.20); RED CELL DISTRIBUTION WIDTH 14.6 % (11.5-14.5)
[2019-08-23 16:30] LABS: ANION GAP 7 mmol/L (8-16); CALCIUM, TOTAL 9.1 mg/dL (8.8-10.5); CARBON DIOXIDE 28 mmol/L (22-29); CHLORIDE 103 mmol/L (98-107); CREATININE 0.84 mg/dL (0.60-1.30); GLOMERULAR FILTR. RATE CALC > 60 mL/min (>60); GLUCOSE,RANDOM 104 mg/dL (70-110); POTASSIUM 3.8 mmol/L (3.5-5.1); SODIUM SERUM 138 mmol/L (136-145); UREA NITROGEN, BLOOD 8 mg/dL (7-18)
[2019-08-23 16:43] LABS: ALANINE AMINOTRANSFERASE 16 U/L (12-78); ALBUMIN 3.4 g/dL (3.4-5.0); ALKALINE PHOSPHATASE 67 U/L (46-116); ASPARTATE AMINOTRANSFERASE 11 U/L (15-37); BILIRUBIN,TOTAL 0.4 mg/dL (0.1-1.0); HCG,QUANTITATIVE < 1 mIU/mL (0-6); LIPASE 138 U/L (73-393); TOTAL PROTEIN, SERUM 7.3 g/dL (6.4-8.2)
[2019-08-23] MEDS ORDERED: KETOROLAC TROMETHAMINE 30 MG/ML VIAL IM ONE (17:00)
[2019-08-23 17:11] LABS: APPEARANCE,URINE CLOUDY (CLEAR); BILIRUBIN,URINE NEGATIVE (NEGATIVE); GLUCOSE, URINE (UA) NEGATIVE (NEGATIVE); KETONES,URINE NEGATIVE (NEGATIVE); LEUKOCYTE ESTERASE ,URINE SMALL (NEGATIVE); OCCULT BLOOD,URINE LARGE (NEGATIVE); PH,URINE 6.5 (5.0-8.0); PROTEIN,URINE NEGATIVE (NEGATIVE)
[2019-08-23 17:19] LABS: BACTERIA,URINE Many /HPF (None Seen); NITRATE,URINE POSITIVE (NEGATIVE); SQUAMOUS EPITHELIAL CELL,UR Moderate /LPF (None Seen); WBC,URINE 26-50 /HPF (0-5)
[2019-08-23] MEDS ORDERED: CefTRIAXone 1 GM/DEXTROSE 50 ML IV ONE (17:45)
[2019-08-23] MEDS ORDERED: DOXYCYCLINE HYCLATE 100 MG CAPSULE PO ONE (17:45)
[2019-08-23] MEDS ORDERED: SODIUM CHLORIDE 0.9% 100 ML ONE (17:48)
[2019-08-23] MEDS ORDERED: IOVERSOL 350 MG/ML 100 ML VIAL ONE (17:48)
[2019-08-23] MEDS ORDERED: AZITHROMYCIN 500 MG TABLET PO ONE (19:00)
[2019-08-23 20:09] VITALS: BP 129/65
== END 2019-08-23 20:31 | disposition home or self-care (01) ==
LOC: EMS 14:41
DX: A59.9 Trichomoniasis, unspecified (principal); N12 Tubulo-interstitial nephritis, not specified as acute or chronic; R03.0 Elevated blood-pressure reading, without diagnosis of hypertension
CPT/HCPCS: 36415; 74177; 76700; 80053; 81001; 83690; 84702; 85025; 87077; 87086; 87186; 96365; 96366; 96372; 99285; J0696; J1885; J7050; Q9967; 96376

== ENCOUNTER 2021-08-04 14:54 | Emergency (ER) | payer MEDICAID, OTHER ==
[~2021-08-04] VITALS: Ht 172.7 cm; Wt 97.3 kg
[2021-08-04 15:06] VITALS: BP 128/78
[2021-08-04 16:51] LABS: BASOPHILS % (AUTO) 0.9 % (0.0-2.0); EOSINOPHILS % (AUTO) 2.9 % (1.0-6.0); HEMATOCRIT 36.1 % (36-46); HEMOGLOBIN 12.2 g/dL (12.0-16.0); LYMPHOCYTES # (AUTO) 1.9 K/uL (1.0-4.8); MEAN CORPUSCULAR HEMOGLOBIN 28.3 pg (26.0-34.0); MEAN CORPUSCULAR HGB CONC 33.8 G/dL (31.0-37.0); MEAN CORPUSCULAR VOLUME 84 fL (80-100); MONOCYTES # (AUTO) 0.5 K/uL (0.1-1.0); MONOCYTES % (AUTO) 9.1 % (2.0-9.0); NEUTROPHILS # (AUTO) 2.6 K/uL (1.8-7.7); NEUTROPHILS % (AUTO) 50.1 % (40.0-70.0); PLATELET COUNT (AUTO) 325 K/uL (150-450); RED BLOOD CELL COUNT(AUTO) 4.31 MIL/uL (4.00-5.20); RED CELL DISTRIBUTION WIDTH 13.8 % (11.5-14.5)
[2021-08-04 16:58] LABS: ANION GAP 9 mmol/L (8-16); CALCIUM, TOTAL 9.3 mg/dL (8.8-10.5); CARBON DIOXIDE 28 mmol/L (22-29); CHLORIDE 102 mmol/L (98-107); CREATININE 0.76 mg/dL (0.60-1.30); GLOMERULAR FILTR. RATE CALC > 60 mL/min (>60); GLUCOSE,RANDOM 82 mg/dL (70-110); POTASSIUM 3.9 mmol/L (3.5-5.1); SODIUM SERUM 139 mmol/L (136-145); UREA NITROGEN, BLOOD 8 mg/dL (7-18)
[2021-08-04 17:11] LABS: ALANINE AMINOTRANSFERASE 19 U/L (12-78); ALBUMIN 3.9 g/dL (3.4-5.0); ALKALINE PHOSPHATASE 66 U/L (46-116); ASPARTATE AMINOTRANSFERASE 15 U/L (15-37); BILIRUBIN,TOTAL 0.4 mg/dL (0.1-1.0); HCG,QUANTITATIVE < 1 mIU/mL (0-6); TOTAL PROTEIN, SERUM 7.7 g/dL (6.4-8.2)
== END 2021-08-04 19:03 | disposition home or self-care (01) ==
LOC: EMS 14:54
DX: O03.9 Complete or unspecified spontaneous abortion without complication (principal); Z3A.01 Less than 8 weeks gestation of pregnancy
CPT/HCPCS: 76801; 80053; 84702; 85025; 86850; 86900; 86901; 99284

== ENCOUNTER 2021-10-23 16:26 | Emergency (ER) | payer OTHER ==
[~2021-10-23] VITALS: Ht 172.7 cm; Wt 97.0 kg
[2021-10-23 18:31] LABS: BASOPHILS % (AUTO) 0.4 % (0.0-2.0); EOSINOPHILS % (AUTO) 2.1 % (1.0-6.0); HEMATOCRIT 35.3 % (36-46); HEMOGLOBIN 11.7 g/dL (12.0-16.0); LYMPHOCYTES # (AUTO) 1.8 K/uL (1.0-4.8); LYMPHOCYTES % (AUTO) 34.4 % (22.0-44.0); MEAN CORPUSCULAR HEMOGLOBIN 27.8 pg (26.0-34.0); MEAN CORPUSCULAR HGB CONC 33.2 G/dL (31.0-37.0); MEAN CORPUSCULAR VOLUME 84 fL (80-100); MONOCYTES # (AUTO) 0.5 K/uL (0.1-1.0); NEUTROPHILS # (AUTO) 2.8 K/uL (1.8-7.7); NEUTROPHILS % (AUTO) 53.1 % (40.0-70.0); PLATELET COUNT (AUTO) 332 K/uL (150-450); RED BLOOD CELL COUNT(AUTO) 4.22 MIL/uL (4.00-5.20); RED CELL DISTRIBUTION WIDTH 13.9 % (11.5-14.5)
[2021-10-23 18:37] LABS: ANION GAP 9 mmol/L (8-16); CALCIUM, TOTAL 8.7 mg/dL (8.8-10.5); CARBON DIOXIDE 26 mmol/L (22-29); CHLORIDE 100 mmol/L (98-107); CREATININE 0.77 mg/dL (0.60-1.30); GLUCOSE,RANDOM 123 mg/dL (70-110); POTASSIUM 3.6 mmol/L (3.5-5.1); SODIUM SERUM 135 mmol/L (136-145); UREA NITROGEN, BLOOD 10 mg/dL (7-18)
[2021-10-23 18:41] LABS: APPEARANCE,URINE CLEAR (CLEAR); BILIRUBIN,URINE NEGATIVE (NEGATIVE); GLUCOSE, URINE (UA) NEGATIVE (NEGATIVE); KETONES,URINE NEGATIVE (NEGATIVE); LEUKOCYTE ESTERASE ,URINE TRACE (NEGATIVE); NITRATE,URINE NEGATIVE (NEGATIVE); OCCULT BLOOD,URINE NEGATIVE (NEGATIVE); PROTEIN,URINE TRACE mg/dL (NEGATIVE); SPECIFIC GRAVITIY, URINE 1.032 (1.003-1.030); UROBILINOGEN,URINE <=1.0 mg/dL (<=1.0)
[2021-10-23 18:45] LABS: GLOMERULAR FILTR. RATE CALC > 60 mL/min (>60)
[2021-10-23 18:50] LABS: ALANINE AMINOTRANSFERASE 22 U/L (12-78); ALBUMIN 3.7 g/dL (3.4-5.0); ALKALINE PHOSPHATASE 66 U/L (46-116); ASPARTATE AMINOTRANSFERASE 20 U/L (15-37); BILIRUBIN,TOTAL 0.3 mg/dL (0.1-1.0); HCG,QUANTITATIVE < 1 mIU/mL (0-6); LIPASE 132 U/L (73-393); TOTAL PROTEIN, SERUM 7.3 g/dL (6.4-8.2)
[2021-10-23 19:12] LABS: RBC,URINE 0-2 /HPF (0-2); WBC,URINE 0-2 /HPF (0-5)
[2021-10-23 19:13] LABS: BACTERIA,URINE Rare /HPF (None Seen); SQUAMOUS EPITHELIAL CELL,UR Few /LPF (None Seen)
[2021-10-23 20:41] VITALS: BP 110/75
== END 2021-10-23 20:30 | disposition home or self-care (01) ==
LOC: EMS 16:27
DX: R10.13 Epigastric pain (principal)
CPT/HCPCS: 74022; 80053; 81001; 83690; 84702; 85025; 99284

== ENCOUNTER 2021-12-02 12:31 | Emergency (ER) | payer OTHER ==
[~2021-12-02] VITALS: Ht 172.7 cm; Wt 90.9 kg
[2021-12-02 12:35] VITALS: BP 111/64
[2021-12-03] MEDS ORDERED: METR500 PO (20:58)
== END 2021-12-02 14:43 | disposition left against medical advice (07) ==
LOC: EMS 12:33
DX: Z53.21 Procedure and treatment not carried out due to patient leaving prior to being seen by health care provider (principal)

== ENCOUNTER 2021-12-03 17:52 | Emergency (ER) | payer OTHER ==
[~2021-12-03] VITALS: Ht 172.7 cm; Wt 90.9 kg
[2021-12-03 20:00] LABS: APPEARANCE,URINE HAZY (CLEAR); BILIRUBIN,URINE NEGATIVE (NEGATIVE); GLUCOSE, URINE (UA) NEGATIVE (NEGATIVE); LEUKOCYTE ESTERASE ,URINE LARGE (NEGATIVE); NITRATE,URINE NEGATIVE (NEGATIVE); OCCULT BLOOD,URINE TRACE (NEGATIVE); PH,URINE 6.5 (5.0-8.0); PROTEIN,URINE 100-200,SEE CONFIRM mg/dL (NEGATIVE); SPECIFIC GRAVITIY, URINE 1.031 (1.003-1.030)
[2021-12-03 20:11] LABS: BACTERIA,URINE Moderate /HPF (None Seen); RBC,URINE 0-2 /HPF (0-2); SULFOSALICYLIC ACID,URINE 1+ (Negative); WBC,URINE 26-50 /HPF (0-5)
[2021-12-03] MEDS ORDERED: METR500 PO (20:58)
[2021-12-03 21:06] VITALS: BP 121/88
== END 2021-12-03 21:13 | disposition home or self-care (01) ==
LOC: EMS 17:52
DX: N76.0 Acute vaginitis (principal); Q38.6 Other congenital malformations of mouth
CPT/HCPCS: 81001; 81002; 87086; 87210; 87491; 87591; 99283

== ENCOUNTER 2022-03-13 13:43 | Emergency (ER) | payer OTHER ==
[~2022-03-13] VITALS: Ht 172.7 cm; Wt 90.0 kg
[~2022-03-13 13:43] MED LIST changes: +METR500 PO; -PNV1TABL89 PO; -RANI150T7 PO; -SLOWK8 PO
[2022-03-13 15:25] LABS: BASOPHILS % (AUTO) 0.9 % (0.0-2.0); EOSINOPHILS % (AUTO) 4.3 % (1.0-6.0); HEMATOCRIT 36.4 % (36-46); HEMOGLOBIN 12.1 g/dL (12.0-16.0); LYMPHOCYTES # (AUTO) 1.4 K/uL (1.0-4.8); LYMPHOCYTES % (AUTO) 27.1 % (22.0-44.0); MEAN CORPUSCULAR HEMOGLOBIN 28.5 pg (26.0-34.0); MEAN CORPUSCULAR HGB CONC 33.3 G/dL (31.0-37.0); MEAN CORPUSCULAR VOLUME 85 fL (80-100); MONOCYTES # (AUTO) 0.6 K/uL (0.1-1.0); MONOCYTES % (AUTO) 11.9 % (2.0-9.0); NEUTROPHILS # (AUTO) 2.9 K/uL (1.8-7.7); NEUTROPHILS % (AUTO) 55.8 % (40.0-70.0); PLATELET COUNT (AUTO) 336 K/uL (150-450); RED BLOOD CELL COUNT(AUTO) 4.26 MIL/uL (4.00-5.20); RED CELL DISTRIBUTION WIDTH 13.7 % (11.5-14.5)
[2022-03-13 16:13] LABS: APPEARANCE,URINE CLEAR (CLEAR); BILIRUBIN,URINE NEGATIVE (NEGATIVE); GLUCOSE, URINE (UA) NEGATIVE (NEGATIVE); KETONES,URINE NEGATIVE (NEGATIVE); LEUKOCYTE ESTERASE ,URINE TRACE (NEGATIVE); NITRATE,URINE NEGATIVE (NEGATIVE); OCCULT BLOOD,URINE LARGE (NEGATIVE); PROTEIN,URINE NEGATIVE (NEGATIVE); UROBILINOGEN,URINE <=1.0 mg/dL (<=1.0)
[2022-03-13 16:26] LABS: BACTERIA,URINE None Seen /HPF (None Seen); RBC,URINE 0-2 /HPF (0-2); SQUAMOUS EPITHELIAL CELL,UR Few /LPF (None Seen); WBC,URINE 0-2 /HPF (0-5)
[2022-03-13 17:20] VITALS: BP 130/75
== END 2022-03-13 17:32 | disposition home or self-care (01) ==
LOC: EMS 13:43
DX: O20.8 Other hemorrhage in early pregnancy (principal); Z3A.08 8 weeks gestation of pregnancy
CPT/HCPCS: 76801; 76817; 81001; 84702; 85025; 86901; 99284

== ENCOUNTER 2023-05-25 09:29 | Emergency (ER) | payer OTHER ==
[~2023-05-25] VITALS: Ht 172.7 cm; Wt 90.9 kg
[2023-05-25 09:34] VITALS: TEMP 98.8
[2023-05-25] MEDS ORDERED: FERR-89 PO (09:46)
[2023-05-25 10:13] LABS: EOSINOPHILS % (AUTO) 0.7 % (1.0-6.0); HEMATOCRIT 38.8 % (36-46); HEMOGLOBIN 12.5 g/dL (12.0-16.0); LYMPHOCYTES % (AUTO) 26.8 % (22.0-44.0); MEAN CORPUSCULAR HEMOGLOBIN 28.1 pg (26.0-34.0); MEAN CORPUSCULAR HGB CONC 32.3 G/dL (31.0-37.0); MEAN CORPUSCULAR VOLUME 87 fL (80-100); MONOCYTES # (AUTO) 0.6 K/uL (0.1-1.0); MONOCYTES % (AUTO) 8.5 % (2.0-9.0); NEUTROPHILS # (AUTO) 4.7 K/uL (1.8-7.7); PLATELET COUNT (AUTO) 399 K/uL (150-450); RED BLOOD CELL COUNT(AUTO) 4.46 MIL/uL (4.00-5.20); RED CELL DISTRIBUTION WIDTH 13.9 % (11.5-14.5); WHITE BLOOD COUNT (AUTO) 7.5 K/uL (4.5-11.0)
[2023-05-25 10:24] LABS: ANION GAP 9 mmol/L (8-16); CALCIUM, TOTAL 9.3 mg/dL (8.8-10.5); CARBON DIOXIDE 27 mmol/L (22-29); CHLORIDE 101 mmol/L (98-107); CREATININE 0.83 mg/dL (0.60-1.30); GLOMERULAR FILTR. RATE CALC > 60 mL/min (>60); GLUCOSE,RANDOM 82 mg/dL (70-110); POTASSIUM 3.8 mmol/L (3.5-5.1); SODIUM SERUM 137 mmol/L (136-145); UREA NITROGEN, BLOOD 11 mg/dL (7-18)
[2023-05-25 10:30] LABS: ALANINE AMINOTRANSFERASE 19 U/L (12-78); ALKALINE PHOSPHATASE 76 U/L (46-116); ASPARTATE AMINOTRANSFERASE 13 U/L (15-37); BILIRUBIN,TOTAL 0.5 mg/dL (0.1-1.0)
[2023-05-25 10:34] LABS: % IRON SATURATION 17.9 % (22-44)
[2023-05-25] MEDS ORDERED: CEPHALEXIN MONOHYDRATE 500 MG CAPSULE PO ONE (11:00)
[2023-05-25] MEDS ORDERED: LIDOCAINE 1% 10 ML VIAL SQ ONE (11:00)
[2023-05-25] MEDS ORDERED: ACETAMINOPHEN/CODEINE 300-30 MG TABLET PO ONE (11:00)
[2023-05-25] MEDS ORDERED: DOXY-354 PO (11:17)
[2023-05-25] MEDS ORDERED: ACET-2080 PO (11:17)
[2023-05-25] MEDS ORDERED: CEPH-558 PO (11:17)
[2023-05-25] MEDS ORDERED: IBUP-1554 PO (11:17)
[2023-05-25 11:52] VITALS: BP 115/67; PULSE 98; RESP 18
== END 2023-05-25 12:00 | disposition home or self-care (01) ==
LOC: EMS 09:29
DX: L73.2 Hidradenitis suppurativa (principal)
CPT/HCPCS: 99283; 10060; 80053; 83540; 83550; 84703; 85025; 36415; J3490

== ENCOUNTER 2023-07-21 09:20 | Emergency (ER) | payer OTHER ==
[~2023-07-21] VITALS: Ht 172.7 cm; Wt 95.5 kg
[~2023-07-21 09:20] MED LIST changes: +ACET-2080 PO; +CEPH-558 PO; +DOXY-354 PO; +FERR-89 PO; +IBUP-1554 PO; -METR500 PO
[2023-07-21 09:25] VITALS: TEMP 98.4
[2023-07-21 10:04] LABS: EOSINOPHILS % (AUTO) 4.6 % (1.0-6.0); HEMATOCRIT 38.8 % (36-46); HEMOGLOBIN 13.1 g/dL (12.0-16.0); LYMPHOCYTES # (AUTO) 1.6 K/uL (1.0-4.8); LYMPHOCYTES % (AUTO) 43.3 % (22.0-44.0); MEAN CORPUSCULAR HEMOGLOBIN 29.1 pg (26.0-34.0); MEAN CORPUSCULAR HGB CONC 33.8 G/dL (31.0-37.0); MEAN CORPUSCULAR VOLUME 86 fL (80-100); MONOCYTES # (AUTO) 0.5 K/uL (0.1-1.0); MONOCYTES % (AUTO) 13.1 % (2.0-9.0); NEUTROPHILS # (AUTO) 1.4 K/uL (1.8-7.7); PLATELET COUNT (AUTO) 297 K/uL (150-450); RED BLOOD CELL COUNT(AUTO) 4.52 MIL/uL (4.00-5.20); RED CELL DISTRIBUTION WIDTH 14.1 % (11.5-14.5); WHITE BLOOD COUNT (AUTO) 3.7 K/uL (4.5-11.0)
[2023-07-21 10:10] LABS: ANION GAP 10 mmol/L (8-16); CALCIUM, TOTAL 8.7 mg/dL (8.8-10.5); CARBON DIOXIDE 27 mmol/L (22-29); CHLORIDE 98 mmol/L (98-107); CREATININE 0.85 mg/dL (0.60-1.30); GLOMERULAR FILTR. RATE CALC > 60 mL/min (>60); GLUCOSE,RANDOM 84 mg/dL (70-110); POTASSIUM 3.9 mmol/L (3.5-5.1); SODIUM SERUM 135 mmol/L (136-145); UREA NITROGEN, BLOOD 9 mg/dL (7-18)
[2023-07-21 10:16] LABS: ALANINE AMINOTRANSFERASE 18 U/L (12-78); ALBUMIN 3.9 g/dL (3.4-5.0); ALKALINE PHOSPHATASE 61 U/L (46-116); ASPARTATE AMINOTRANSFERASE 18 U/L (15-37); BILIRUBIN,TOTAL 0.9 mg/dL (0.1-1.0); LIPASE 39 U/L (16-77); TOTAL PROTEIN, SERUM 8.2 g/dL (6.4-8.2)
[2023-07-21] MEDS: ACETAMINOPHEN 500 MG TABLET PO ONE (11:39)
[2023-07-21] MEDS: ONDANSETRON HCL 4 MG/2 ML VIAL IVP ONE (11:39)
[2023-07-21] MEDS: FAMOTIDINE 20 MG/2 ML VIAL IVP ONE (11:39)
[2023-07-21] MEDS: SODIUM CHLORIDE 0.9% 1,000 ML IV ONE (11:39)
[2023-07-21 11:41] LABS: INFLUENZA A-RTPCR,COMBO NEGATIVE (NEGATIVE); INFLUENZA B-RTPCR,COMBO NEGATIVE (NEGATIVE); RESPIRATORY SYNCYTIAL VRS-PCR NEGATIVE (NEGATIVE); SARS COVID19 RTPCR, COMBO NEGATIVE (NEGATIVE)
[2023-07-21] MEDS ORDERED: ACET-3385 PO (11:49)
[2023-07-21] MEDS ORDERED: ONDA-104 PO (11:49)
[2023-07-21 12:30] VITALS: BP 122/67; PULSE 70; RESP 18
== END 2023-07-21 12:34 | disposition home or self-care (01) ==
LOC: EMS 09:20
DX: B34.9 Viral infection, unspecified (principal); R11.2 Nausea with vomiting, unspecified; F12.90 Cannabis use, unspecified, uncomplicated; Z20.822 Contact with and (suspected) exposure to COVID-19
CPT/HCPCS: 99284; 96374; 0241U; 96361; 96375; 80053; 83690; 84703; 85025; 36415; J3490; J2405; J7030

== ENCOUNTER 2023-09-30 12:59 | Emergency (ER) | payer OTHER ==
[~2023-09-30] VITALS: Ht 172.7 cm; Wt 86.4 kg
[~2023-09-30 12:59] MED LIST changes: +ACET-3385 PO; +ONDA-104 PO
[2023-09-30 13:01] VITALS: TEMP 98.1
[2023-09-30] MEDS ORDERED: HYDR-4062 PO (13:39)
[2023-09-30] MEDS ORDERED: AMOX1TAB16 PO (13:39)
[2023-09-30] MEDS: IBUPROFEN 600 MG TABLET PO ONE (13:52)
[2023-09-30] MEDS: HYDROCODONE/ACETAMINOPHEN 5-325 MG TABLET PO ONE (13:52)
[2023-09-30 14:07] VITALS: BP 123/78; PULSE 78; RESP 18
== END 2023-09-30 14:20 | disposition home or self-care (01) ==
LOC: EMS 12:59
DX: K04.7 Periapical abscess without sinus (principal); K08.89 Other specified disorders of teeth and supporting structures
CPT/HCPCS: 99283

== ENCOUNTER 2024-04-23 12:09 | Emergency (ER) | payer OTHER ==
[~2024-04-23] VITALS: Ht 172.7 cm; Wt 81.8 kg
[~2024-04-23 12:09] MED LIST changes: -ACET-2080 PO; -ACET-3385 PO; +AMOX-457 PO; -CEPH-558 PO; -DOXY-354 PO; -FERR-89 PO; +HYDR-4062 PO; -ONDA-104 PO
[2024-04-23 12:40] VITALS: BP 105/71; PULSE 95; RESP 16; TEMP 98.7; O2SAT 98
[2024-04-23 12:46] LABS: COVID AG,FIA SOURCE NASAL SWAB
[2024-04-23 13:04] LABS: SARS-COV2 (COVID) ANTIGEN,FIA Negative (Negative)
[2024-04-23 13:06] LABS: INFLUENZA TYPE A POSITIVE FOR TYPE A (NEGATIVE)
[2024-04-23 13:07] LABS: INFLUENZA TYPE B NEGATIVE FOR TYPE B (NEGATIVE)
== END 2024-04-23 13:12 | disposition left against medical advice (07) ==
LOC: EMS 12:09
DX: R50.9 Fever, unspecified (principal); M79.10 Myalgia, unspecified site; R09.81 Nasal congestion; Z53.21 Procedure and treatment not carried out due to patient leaving prior to being seen by health care provider; Z20.822 Contact with and (suspected) exposure to COVID-19
CPT/HCPCS: 87804

== ENCOUNTER 2025-01-13 15:19 | Emergency (ER) | payer OTHER ==
[~2025-01-13] VITALS: Ht 172.7 cm; Wt 72.7 kg
[2025-01-13 15:32] VITALS: TEMP 99.5
[2025-01-13 18:45] VITALS: BP 124/69; PULSE 91; RESP 17; O2SAT 98
[2025-01-13 19:32] LABS: PLATELET COUNT (AUTO) 349 K/uL (150-450); RED BLOOD CELL COUNT(AUTO) 3.78 MIL/uL (4.00-5.20); RED CELL DISTRIBUTION WIDTH 13.5 % (11.5-14.5); WHITE BLOOD COUNT (AUTO) 6.9 K/uL (4.5-11.0)
[2025-01-13 19:40] LABS: CALCIUM, TOTAL 8.4 mg/dL (8.8-10.5); CREATININE 0.42 mg/dL (0.60-1.30); GLOMERULAR FILTR. RATE CALC > 60 mL/min (>60); GLUCOSE,RANDOM 91 mg/dL (70-110); SODIUM SERUM 134 mmol/L (136-145); UREA NITROGEN, BLOOD 6 mg/dL (7-18)
[2025-01-13 20:56] LABS: APPEARANCE,URINE CLEAR (CLEAR); GLUCOSE, URINE (UA) NEGATIVE (NEGATIVE); LEUKOCYTE ESTERASE ,URINE NEGATIVE (NEGATIVE); NITRATE,URINE NEGATIVE (NEGATIVE); OCCULT BLOOD,URINE NEGATIVE (NEGATIVE); SPECIFIC GRAVITIY, URINE 1.026 (1.003-1.030)
[2025-01-13 21:02] LABS: SQUAMOUS EPITHELIAL CELL,UR Few /LPF (None Seen)
[2025-01-13] MEDS ORDERED: PREN-223 PO (21:37)
[2025-01-13] MEDS ORDERED: DOXY1TAB3 PO (21:37)
== END 2025-01-13 21:56 | disposition home or self-care (01) ==
LOC: EMS 15:20
DX: O20.9 Hemorrhage in early pregnancy, unspecified (principal); O21.0 Mild hyperemesis gravidarum; O99.320 Drug use complicating pregnancy, unspecified trimester; F12.90 Cannabis use, unspecified, uncomplicated; Z3A.01 Less than 8 weeks gestation of pregnancy; Z79.899 Other long term (current) drug therapy
CPT/HCPCS: 76801; 80048; 81001; 84702; 85025; 99284